=== PATIENT | female | born 1995 | race Caucasian/White ===

== ENCOUNTER 2016-10-27 17:21 | Emergency (ER) | payer OTHER ==
[~2016-10-27] VITALS: Ht 157.5 cm; Wt 89.3 kg
[~2016-10-27 17:21] MED LIST: ACET500C5 PO
[2016-10-27 17:24] VITALS: Ht 157.5 cm; Wt 89.3 kg
[2016-10-27] MEDS ORDERED: ACETAMINOPHEN 325 MG TAB PO ONE (19:00)
--- NOTE | 2016-10-27 19:30 | RADRPT ---
PROCEDURE: US OB. CLINICAL INDICATION: Abdominal pain. TECHNIQUE: Multiple sonographic images of the uterus were obtained. The images were revi ewed on a PACS workstation. COMPARISON: No prior studies are available for comparison. FINDINGS: There is a single live intrauterine gestation. heart rate is 159 beats per minute. Measurements were made in order to determine age. The results are as follows: BPD = 4.42 cm. HC = 16.47 cm. AC = 14.52 cm. FL = 2.92 cm. Estimated weight is 291 +/- 44 grams. LMP growth percentile is 94 %. Menstrual age by ultrasound dates is 19 weeks 3 days. The estimated date of delivery is 03/20/2017. Amniotic fluid index is 7.3 cm. Position is cephalic/variable and placenta is anterior grade 1. There is no evidence for an abruptio n or placenta previa. IMPRESSION: 1. Single live intrauterine gestation of 19 weeks 3 days menstrual age by ultrasound dates. 2. The estimated date of delivery is 03/20/2017. RPTAT: QQ .Adolfo Jay MD, Date Time Electronically viewed and signed by .Adolfo Jay MD, on 10/27/2016 19:29 .R/
[2016-10-27] MEDS ORDERED: ACET325T33 PO (19:55)
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
[2016-10-27 20:06] VITALS: BP 126/82; PULSE 97; RESP 20
== END 2016-10-27 20:06 | disposition home or self-care (01) ==
LOC: FTE 17:21
DX: O9A.212 Injury, poisoning and certain other consequences of external causes complicating pregnancy, second trimester (principal); S39.91XA Unspecified injury of abdomen, initial encounter; V49.40XA Driver injured in collision with unspecified motor vehicles in traffic accident, initial encounter; Z3A.19 19 weeks gestation of pregnancy
CPT/HCPCS: 76805; Z7502; Z7610

== ENCOUNTER 2017-07-27 08:20 | Day surgery (SDC) | payer OTHER ==
[2017-07-27] VITALS (13 sets, daily range): BP systolic 125–161; BP diastolic 60–97; PULSE 70–130; RESP 14–26; Ht 157.5 cm; Wt 96.0 kg
[~2017-07-27] VITALS: Ht 157.5 cm; Wt 96.0 kg
[~2017-07-27 08:20] MED LIST changes: +ACET325T33 PO; +CEFAZOLIN 2 GM/50 ML (PMX) 50 ML IVPB SCH; +SOD CHLORIDE 0.9% 1,000 ML IV SCH
[2017-07-27] MEDS ORDERED: LABETALOL HCL 20MG INJ IV PRN (12:00)
[2017-07-27] MEDS ORDERED: ONDANSETRON 4 MG INJ IV PRN (12:00)
[2017-07-27] MEDS ORDERED: EPHEDrine SULFATE 50 MG/5 ML SYG IV PRN (12:00)
[2017-07-27] MEDS ORDERED: MIDAZOLAM 1 MG/ML 2 ML INJ IV PRN (12:00)
[2017-07-27] MEDS ORDERED: HYDROmorphONE (0.2 MG/ML) 10ML SYG IV PRN ×3 (12:00)
[2017-07-27] MEDS ORDERED: DIPHENHYDRAMINE 50 MG INJ IV PRN (12:00)
[2017-07-27] MEDS ORDERED: FENTAnyl 50 MCG/ML VIAL IV PRN ×2 (12:00)
[2017-07-27] MEDS ORDERED: METOCLOPRAMIDE 10 MG INJ IV PRN (12:00)
[2017-07-27] MEDS ORDERED: hydrALAzine 20 MG INJ IV PRN (12:00)
[2017-07-27] MEDS ORDERED: MEPERIDINE 25 MG INJ IV PRN (12:00)
[2017-07-27] MEDS ORDERED: BUPIVACAINE 0.25% (MPF) 10 ML 10 ML VIAL ONE (12:00)
[2017-07-27] MEDS ORDERED: OXYCODONE/ACETAMINOPHEN (5/325) TAB PO PRN ×2 (12:00)
[2017-07-27] MEDS ORDERED: LIDOCAINE 2% (SDV) 5 ML INJ ONE (12:03)
[2017-07-27] MEDS ORDERED: PROPOFOL 20 ML ONE (12:03)
[2017-07-27] MEDS ORDERED: NEOSTIGMINE 3 MG/3 ML SYRINGE ONE (12:03)
[2017-07-27] MEDS ORDERED: ROCURONIUM 50 MG INJ ONE (12:03)
[2017-07-27] MEDS ORDERED: GLYCOPYRROLATE 1 MG INJ ONE (12:03)
[2017-07-27] MEDS ORDERED: SUCCINYLCHOLINE CHLORIDE 100 MG/5 ML SYG IV ONE (12:03)
[2017-07-27] MEDS ORDERED: MEPERIDINE 100 MG INJ ONE (12:03)
[2017-07-27] MEDS ORDERED: METOCLOPRAMIDE 10 MG INJ ONE (12:08)
[2017-07-27] MEDS ORDERED: ONDANSETRON 4 MG INJ ONE (12:08)
[2017-07-27] MEDS ORDERED: CEFAZOLIN 1 GM INJ ONE (12:08)
[2017-07-27] MEDS ORDERED: FENTAnyl 50 MCG/ML VIAL ONE (12:09)
--- NOTE | 2017-07-27 12:57 | OPR ---
Date/Time of Note Date/Time of Note DATE: 07/27/17 TIME: 12:52 Operative Report Procedure Date: Jul 27, 2017 Preoperative Diagnosis symptomatic gallstones Postoperative Diagnosis same Operation/Procedure Performed 1. laparoscopic cholecystectomy 2. therapeutic injection of subcutaneous local anesthesia Surgeon see signature line Neon Sign Installer none Anesthesia Type: general Estimated Blood Loss: 0 - 10 ml's Transfusion none Specimen gallbladder Grafts/Implants none Complications none Pt Condition Post Procedure: stable Indications This is a 22-year-old female with symptomatic cholelithiasis. She requests surgical excision of the gallbladder. Risks alternatives benefits and percent were discussed with the patient. Patient expresses understanding consents to the operation. Procedure Description Patient is taken to the OR and prepped and draped in usual sterile fashion. Surgical timeout is performed. IV antibiotics given. Infraumbilical transverse incision is made with a 15 blade. Dissection cautery was carried down to the fascia. The fascia was grasped with Jenner's and divided with curved Dutta scissors. 0 Vicryl U stitch was placed into the fascia. Blueness on trocar is introduced. Pneumoperitoneum is established. Midepigastric 12 mm optical trocar was placed under direct visualization. Right upper quadrant upper flank 5 mm optical trocar was placed under direct visualization. Upon initial inspection there are some adhesions to the gallbladder which were taken down bluntly the gallbladder was intrahepatic the gallbladder was grasped and retracted in a lateral and our direction. A dome down approach was elected for dissection. Dissection was carried down all the way to the cystic duct. Because the cystic duct was in a intrahepatic configuration the gallbladder was divided more distally with a 35 mm echelon vessel stapler. This allowed better visualization of the cystic duct and cystic artery. The cystic artery was clipped and divided with 3 clips proximal and 1 clip distal. The cystic duct was clipped with 3 clips proximal and clip distal. This additional piece was taken as specimen for full complete laparoscopic cholecystectomy. There is good hemostasis. The gallbladder was retrieved using Endo Catch bag along with the additional gallbladder tissue. Ports removed under direct visualization 0 Vicryl U stitch was tied down skin was closed using skin kayla local anesthesia was therapeutically injected subcutaneously along all incision sites. Dressings were applied. Andi RIVERA Jul 27, 2017 12:56
[2017-07-27] MEDS ORDERED: HYDROCODONE/APAP (5/325) TAB PO ONE (13:00)
[2017-07-27] MEDS: FENTAnyl 50 MCG/ML VIAL IV PRN ×2 (13:27→13:37)
== END 2017-07-27 16:15 | disposition home or self-care (01) ==
LOC: SDS 08:20
PROVIDERS: ATTEND Surgery
DX: K80.10 Calculus of gallbladder with chronic cholecystitis without obstruction (principal)
CPT/HCPCS: 47562; 84703; 88304; J0690; J1200; J2250; J2405; J2710; J2765; J3010; Z7512; Z7610; J2175